=== PATIENT | female | born 1970 | race Caucasian/White ===

== ENCOUNTER 2022-07-23 00:42 | Emergency (ER) | payer BC ==
[2022-07-23] MEDS ORDERED: Ondansetron ODT 4 MG TAB ONE (00:53)
[2022-07-23] MEDS ORDERED: Ondansetron PF 4 MG/2 ML Vial ONE ×2 (00:59→03:44)
[2022-07-23] MEDS ORDERED: Sodium Chloride 0.9% 1,000 ML ONE (01:01)
[2022-07-23 01:06] LABS: #Basophils 0.1 thou/uL (0.0-0.2); #Eosinphils 0.2 thou/uL (0.0-0.7); #Lymphocytes 1.1 thou/uL (1.20-3.40); #Monocytes 0.7 thou/uL (0.11-0.59); #Neutrophils 8.9 thou/uL (1.40-6.50); %Eosinophils 1.6 % (0.0-10.0); %Lymphocytes 9.6 % (21.0-51.0); %Monocytes 6.3 % (0.0-10.0); %Neutrophils 81.5 % (42.0-75.0); Hemoglobin 14.2 g/dL (12.0-16.0); Mean Corpuscular HGB CONC 31.3 g/dL (32.0-36.0); Mean Corpuscular Hemoglobin 27.1 pg (27.0-31.0); Mean Corpuscular Volume 86.6 fL (78.0-98.0); Mean Platelet Volume 7.1 fL (7.4-10.4); Platelet Count 299 thou/uL (130-400); Red Blood Cell (RBC) Count 5.26 mill/uL (4.20-5.40); White Blood Cell (WBC) Count 10.9 thou/uL (4.8-10.8)
[2022-07-23] MEDS ORDERED: Metoclopramide HCl 10 MG/2 ML VIAL ONE (01:10)
[2022-07-23] MEDS ORDERED: diphenhydrAMINE 50 MG/ML VIAL ONE ×2 (01:10→04:39)
[2022-07-23 01:25] LABS: ALT (SGPT) 29 U/L (8-55); AST (SGOT) 23 U/L (5-34); Albumin 3.9 g/dL (3.5-5.0); Alkaline Phosphatase 106 U/L (40-110); Anion Gap 16 mmol/L (10-20); BUN (Urea Nitrogen) 13 mg/dL (9.8-20.1); Bilirubin, Total 0.5 mg/dL (0.2-1.2); Calc. Creatinine Clearance 0 mL/min (70-130); Calcium 9.3 mg/dL (7.8-10.44); Carbon Dioxide 29 mmol/L (22-29); Chloride 103 mmol/L (98-107); Estimated GFR 69; Glucose 126 mg/dL (70-105); Lipase 8 U/L (8-78); Magnesium 1.5 mg/dL (1.6-2.6); Potassium 3.8 mmol/L (3.5-5.1); Protein, Total 6.9 g/dL (6.0-8.3); Sodium 144 mmol/L (136-145)
[2022-07-23] MEDS ORDERED: Magnesium Oxide 400 MG TAB ONE (01:38)
[2022-07-23 01:47] LABS: Acetaminophen Less than 10.0 mcg/mL (10.0-30.0); Alcohol Less than 10 mg/dL (Less than 10); Salicylate Less than 8.0 mg/dL (15.0-30.0)
[2022-07-23 02:10] LABS: Bilirubin Negative (Negative); Blood, Urine Small (Negative); Clarity Clear (Clear); Glucose, Urine (Dipstick) Negative (Negative); Ketone, Urine Negative (Negative); Leukocyte Negative (Negative); Nitrite Negative (Negative); Protein, Urine (Dipstick) Negative (Neg-Trace); Urobilinogen 0.2 mg/dL (Less than 2); pH, Urine 5.5 (5.0-9.0)
[2022-07-23 02:11] LABS: Specific Gravity, Urine 1.019 (1.002-1.036)
[2022-07-23 02:22] LABS: Bacteria/HPF None Seen HPF (None Seen); Mucous/LPF 2+ LPF (<2+); RBC/HPF 0-3 HPF (0-3); Squamous Epithelial 0-3 HPF (0-3); Transitional Epithelial 0-3 HPF (None Seen); WBC/HPF 0-3 HPF (0-3)
[2022-07-23 02:23] LABS: Amphetamine Not Detected (NotDetected); Barbiturates Screen Not Detected (NotDetected); Benzodiazepine Screen Not Detected (NotDetected); Cocaine Metabolite Screen Not Detected (NotDetected); Medtox Control Line Valid? VALID (VALID); Methadone Not Detected (NotDetected); Methamphetamine Not Detected (NotDetected); Opiate Screen Not Detected (NotDetected); Oxycodone Screen Not Detected (NotDetected); Phencyclidine (PCP) Not Detected (NotDetected); THC/Cannabinoid Screen Not Detected (NotDetected); Tricyclic Screen Not Detected (NotDetected)
[2022-07-23] MEDS ORDERED: Sodium Chloride 0.9% 500 ML ONE (03:44)
[2022-07-23] MEDS ORDERED: Magnesium 2 GM/50 ML BAG (IN WATER) ONE (03:44)
[2022-07-23] MEDS ORDERED: Haloperidol Lactate 5 MG/ML VIAL ONE (04:39)
[2022-07-23] MEDS ORDERED: Piperacillin/Tazobactam 4.5 GM VIAL ONE (05:17)
[2022-07-23] MEDS ORDERED: Sodium Chloride 0.9% 100 ML ONE (05:17)
[2022-07-23] MEDS ORDERED: Iopamidol 370 76% 100 ML VIAL ONE (09:11)
[2022-07-23 12:52] LABS: Free T4 (Free Thyroxine) 1.86 ng/dL (0.70-1.48)
== END 2022-07-23 06:52 | disposition short-term general hospital (02) ==
LOC: MADERS 00:42
DX: K52.89 Other specified noninfective gastroenteritis and colitis (principal); R11.2 Nausea with vomiting, unspecified; Z79.899 Other long term (current) drug therapy
CPT/HCPCS: 74177; 80053; 80306; 80307; 81003; 81015; 83690; 83735; 84439; 84443; 84481; 85025; 93005; 96365; 96367; 96372; 96375; 96376; J1200; J1630; J2405; J2543; J2765; J3475; J3490; J7030; J7050; Q0162; Q9967